=== PATIENT | female | born 1970 ===

== ENCOUNTER → 2024-11-04 11:15 | Outpatient (CLI) | payer OTHER ==
[2024-11-04 13:02] LABS: BASO % 1.1 % (0.1-1.2); EOS # 0.13 (0.04-0.54); EOS % 4.7 % (0.7-7.0); HEMATOCRIT 38.3 % (34.1-44.9); HEMOGLOBIN 12.5 g/dL (11.2-15.7); LYMPH % 46.6 % (19.3-53.1); MEAN CORPUSCULAR HEMOGLOBIN 26.7 pg (25.6-32.2); MONO # 0.23 (0.24-0.82); MONO % 8.2 % (4.7-12.5); NEUT % 39.4 % (34.0-71.1); PLATELET COUNT 225 K/uL (163-369); RED BLOOD COUNT 4.69 M/uL (3.93-5.22)
[2024-11-04 13:27] LABS: % SATURACION 16.4 % (15-50); ALBUMIN 4.2 gm/dL (3.4-5.0); BILIRUBIN TOTAL 0.54 mg/dL (0.3-1.2); CALCIUM 9.8 mg/dL (8.5-10.1); CREATININE SERUM 0.9 mg/dL (0.55-1.02); FERRITIN 38.2 NG/ML (8-252); GFR 64.77; GLOBULINA 3.6 G/DL (2.4-3.5); POTASSIUM 4.6 mEq/L (3.5-5.1); TOTAL PROTEIN 7.8 gm/dL (6.4-8.2)
[2024-11-04 14:08] LABS: FOLIC ACID > 20.00 ng/ml (4.78-20)
== END | disposition home or self-care (01) ==
LOC: LAB 11:15
PROVIDERS: ATTEND Internal Medicine Hematology & Oncology
DX: D72.818 Other decreased white blood cell count (principal); M06.9 Rheumatoid arthritis, unspecified; I10 Essential (primary) hypertension; R79.9 Abnormal finding of blood chemistry, unspecified; R74.02 Elevation of levels of lactic acid dehydrogenase [LDH]; K76.89 Other specified diseases of liver; D50.8 Other iron deficiency anemias; M32.9 Systemic lupus erythematosus, unspecified; D51.1 Vitamin B12 deficiency anemia due to selective vitamin B12 malabsorption with proteinuria; E06.3 Autoimmune thyroiditis; M05.9 Rheumatoid arthritis with rheumatoid factor, unspecified; B17.9 Acute viral hepatitis, unspecified; Z11.59 Encounter for screening for other viral diseases